=== PATIENT | male | born 1965 | race Caucasian/White ===

== ENCOUNTER 2023-03-15 03:45 | Inpatient (IN) | payer SELFPAY ==
[2023-03-15] VITALS (536 sets, daily range): BP systolic 111–134; BP diastolic 62–88; PULSE 60–90; TEMP 97.7–98.4; O2SAT 85–100
[~2023-03-15] VITALS: Ht 180.3 cm; Wt 144.5 kg
[2023-03-15 04:09] LABS: HEMATOCRIT 37.3 % (42.0-52.0); HEMOGLOBIN 12.3 g/dl (13.5-18.0); MEAN CELL VOLUME 87 fl (80.0-100.0); MEAN CORPUSCULAR HEMOGLOBIN 29 pg (27-31); MEAN CORPUSCULAR HGB CONC 33 g/dl (33.0-37.0); MEAN PLATELET VOLUME 11.2 fl (7.4-10.4); PLATELET COUNT 354 K/mm3 (130-400); RED BLOOD COUNT 4.28 M/mm3 (4.20-5.60); REDCELL DISTRIBUTION WIDTH-CV 13.6 % (11.5-14.5)
[2023-03-15 04:33] LABS: BAND 5 % (0-10); HYPOCHROMIA 1+; LYMPHOCYTE 12 % (20.0-51.0); METAMYELOCYTE 1 % (0-0); NEUTROPHILS 74 % (42.0-75.2); PLATELET ESTIMATE NORMAL (NORMAL)
[2023-03-15 04:58] LABS: C-REACTIVE PROTEIN 38.49 mg/dL (0.00-0.50); CREATININE, serum 1.25 mg/dL (0.72-1.25); MAGNESIUM 2.5 mg/dL (1.6-2.6); TROPONIN-I 0.018 ng/mL (0.00-0.033)
[2023-03-15 05:00] LABS: ALBUMIN 1.9 gm/dL (3.5-5.0); BILIRUBIN,TOTAL 1.4 mg/dL (0.2-1.2); POTASSIUM 3.6 mmol/L (3.5-4.5); TOTAL PROTEIN 8.1 gm/dL (6.2-8.1)
[2023-03-15] MEDS ORDERED: LYRICA 100MG C100 M1 PO (05:24)
[2023-03-15] MEDS ORDERED: NOVOLOG 100U100 U/M1 SQ (05:28)
[2023-03-15] MEDS ORDERED: Morphine 4 MG/ML VIAL IV ONE (05:30)
[2023-03-15] MEDS ORDERED: Potassium Chloride 100 ML IV SCH (06:00)
[2023-03-15] MEDS ORDERED: *Potassium Replacement Protocol MC SCH (06:00)
[2023-03-15] MEDS ORDERED: Acetaminophen 500 MG TAB PO PRN (06:00)
[2023-03-15] MEDS ORDERED: Ondansetron 4 MG/2 ML VIAL IV PRN ×2 (06:00→12:15)
[2023-03-15 06:04] LABS: CHOLESTEROL 122 mg/dL (0-199); HDL CHOLESTEROL < 5 mg/dL (40-60); LDL CHOLESTEROL 65 mg/dL; TRIGLYCERIDE 258 mg/dL (0-149)
[2023-03-15] MEDS ORDERED: Vancomycin 2 GM,Special Dose/Pharmacy Prepared 2 GM in NS 500 ML IV SCH (06:15)
[2023-03-15 07:16] LABS: BASO # 0.2 K/mm3 (0.0-0.2); BASO % 0.7 % (0.0-2.0); GRAN % 78.9 % (42.2-75.2); LYMPH # 2.4 K/mm3 (1.2-3.4); MONO # 1.6 K/mm3 (0.1-0.6); MONO % 7.4 % (1.7-9.3)
[2023-03-15] MEDS ORDERED: Dextrose (Glucose) 15 GM (4 x 3.75 GM) Chewable TABLET PACK PO PRN (08:45)
[2023-03-15] MEDS ORDERED: Dextrose 50% Water 25 GM/50 ML SYRINGE IV PRN (08:45)
[2023-03-15] MEDS ORDERED: Glucagon 1 MG VIAL IM PRN (08:45)
[2023-03-15] MEDS ORDERED: Pregabalin 50 MG CAP PO SCH (09:00)
[2023-03-15 09:46] LABS: INR 1.3 (0.8-3.0); PROTHROMBIN TIME 13.9 SECONDS (9.7-12.8)
--- NOTE | 2023-03-15 10:07 | NUR ---
PATIENT UP TO FLOOR AT APPROXIMATELY 0745. PATIENT ON ANTOINE BED. ASSESSMENT PERFORMED. IV TO RIGHT AC, INT FLUSHES WELL. INTAKE COMPLETE. MED RX COMPLETE. WAITING FOR ORDERS.
--- NOTE | 2023-03-15 10:09 | NUR ---
PATIENT OFF OF FLOOR FOR PROCEDURE.
[2023-03-15] MEDS ORDERED: Regadenoson 0.08 MG/ML 5 ML SYRINGE IV SCH (11:15)
[2023-03-15] MEDS ORDERED: Ondansetron 4 MG/2 ML VIAL ONE (11:56)
[2023-03-15] MEDS ORDERED: fentaNYL 50 MCG/ML 2 ML VIAL ONE (11:56)
[2023-03-15] MEDS ORDERED: Rocuronium 50 MG/5 ML Multi-Dose VIAL ONE (11:56)
[2023-03-15] MEDS ORDERED: Lidocaine PF 2% (20 MG/ML) 5 ML VIAL ONE (11:56)
[2023-03-15] MEDS ORDERED: Insulin Aspart (NovoLOG) SQ SCH (12:00)
[2023-03-15] MEDS ORDERED: HYDROmorphone 0.5 MG/0.5 ML SYRINGE IV PRN (12:15)
[2023-03-15] MEDS ORDERED: diphenhydrAMINE 50 MG/ML 1 ML VIAL IV PRN (12:15)
[2023-03-15] MEDS ORDERED: oxyCODONE 5 MG TAB PO PRN (12:15)
[2023-03-15] MEDS ORDERED: diphenhydrAMINE 25 MG CAP PO PRN (12:15)
[2023-03-15] MEDS ORDERED: Naloxone 0.4 MG/ML VIAL IV PRN (12:15)
[2023-03-15] MEDS ORDERED: D5 1/2 NS 1,000 ML IV SCH (12:15)
[2023-03-15] MEDS ORDERED: Docusate Sodium 100 MG CAP PO PRN (12:15)
[2023-03-15] MEDS ORDERED: Magnes Hydrox (MOM) 80 MG/ML 30 ML CUP PO PRN (12:15)
[2023-03-15] MEDS ORDERED: Mag/Al Hydrox/Simeth Susp 30 ML CUP PO PRN (12:15)
[2023-03-15] MEDS ORDERED: NS 1,000 ML IV SCH (15:30)
--- NOTE | 2023-03-15 15:35 | NUR ---
tube worker met with patient to complete care assessment. Patient lives in [place] with his daughter, Stephanie, P# [phone]. Patient does not have a PCP due to not having insurance. Preferred pharmacy is [facility] and he reports using [facility] to make his medications more affordable. Patient does not have a DPOA-HC. SW presented a blank DPOA-HC form for patient to review as patient was potentially interested in completing one while in the hospital. Patient reports he does not have any DME at this time but may need a walker after this surgery. Patient reports prior to hospitalization he was doing well with being independent with ADLS. Patient does not own a form of transportation but reports his daughter could transport him if it were after she gets off work at 3:30 pm. SW discussed patient participating with therapies while here and may need rehab prior to returning home. Patient was open to this but does not have insurance, so that was his main concern. SW will continue to follow for PT/OT recommendations. SW attempted to contact financial counselor to obtain financial assistance for patient. SW left a voicemail.
[2023-03-15] MEDS ORDERED: Vancomycin 1.5 GM,Special Dose/Pharmacy Prepared 1.5 GM in NS 250 ML IV SCH (17:00)
--- NOTE | 2023-03-15 19:00 | NUR ---
1425 PT ADMITTED TO [facility] 15 FROM PACU. PT STABLE UPON ARRIVAL, O2 SATS 98% ON 4L/NC, O2 TITRATED TO 2L. DRESSING TO L BKA SURGICAL SITE CDI, IMMOBILIZER IN PLACE. LIMB ELEVATED ON PILLOW, ICE PACK APPLIED. PT ALERT AND ORIENTED, USES CALL LIGHT FOR NEEDS. 1900 PT REMAINS STABLE THROUGHOUT SHIFT, VSS ON 2L O2 PER NC. PT ABLE TO EAT AND DRINK W/O NAUSEA. ONE DOSE OF OXYCODONE GIVEN AT 1639 FOR 5/10 PAIN TO SURGICAL SITE.
[2023-03-15 20:34] LABS: CALCIUM 7.7 mg/dL (8.4-10.2); CREATININE, serum 1.39 mg/dL (0.72-1.25); POTASSIUM 3.8 mmol/L (3.5-4.5)
[2023-03-15] MEDS ORDERED: Atorvastatin 40 MG TAB PO SCH (21:00)
[2023-03-15] MEDS ORDERED: Melatonin 3 MG TAB PO PRN (21:00)
[2023-03-15] MEDS ORDERED: Potassium Bicarbonate/Citrate 20 MEQ Effervescent TAB PO ONE (22:45)
[2023-03-16] VITALS (833 sets, daily range): BP systolic 105–135; BP diastolic 66–85; PULSE 74–89; TEMP 97.6–98.5; O2SAT 80–100
[2023-03-16 09:21] LABS: HEMOGLOBIN 11.4 g/dl (13.5-18.0); MEAN CELL VOLUME 86 fl (80.0-100.0); MEAN CORPUSCULAR HEMOGLOBIN 29 pg (27-31); MEAN CORPUSCULAR HGB CONC 33 g/dl (33.0-37.0); MEAN PLATELET VOLUME 11.2 fl (7.4-10.4); PLATELET COUNT 303 K/mm3 (130-400); RED BLOOD COUNT 3.98 M/mm3 (4.20-5.60); REDCELL DISTRIBUTION WIDTH-CV 14.4 % (11.5-14.5)
[2023-03-16 09:23] LABS: HEMATOCRIT 34.4 % (42.0-52.0)
[2023-03-16 09:35] LABS: ALBUMIN 1.4 gm/dL (3.5-5.0); BILIRUBIN,TOTAL 1.1 mg/dL (0.2-1.2); CALCIUM 7.5 mg/dL (8.4-10.2); CREATININE, serum 1.77 mg/dL (0.72-1.25); MAGNESIUM 2.4 mg/dL (1.6-2.6); POTASSIUM 3.8 mmol/L (3.5-4.5); TOTAL PROTEIN 6.5 gm/dL (6.2-8.1)
[2023-03-16 09:51] LABS: BAND 27 % (0-10); LYMPHOCYTE 10 % (20.0-51.0); METAMYELOCYTE 1 % (0-0); NEUTROPHILS 57 % (42.0-75.2); PLATELET ESTIMATE NORMAL (NORMAL)
--- NOTE | 2023-03-16 10:32 | NUR ---
PT glucose is elevated this am. Pt explains at home is sugars are close to 400 if not over often. PT also states he ate a cookie at 0645. Pt also complains of burning in his left leg. Lyrica and tylenol did help with the sensation. Pt refuses morning hygeine will offer again this afternoon. Pt has call light in hand and verbalizes understanding of its use. Plan of care on going.
[2023-03-16] MEDS ORDERED: Potassium Chloride 100 ML IV SCH (13:45)
--- NOTE | 2023-03-16 14:46 | NUR ---
Report given to HEYDI Gama. Pt moved to room 342. ALEJANDRA Simon met patient in room to obtain vital signs. Care relinquished at this time
--- NOTE | 2023-03-16 14:52 | NUR ---
RECIEVED REPORT FROM ICU NURSE AT 1423 PT ARRIVED TO THE UNIT AT 1445. VSS. POTASSIUM AND IV FLUIDS @75ML/HR. DRESSING WITH BRACE DCI. LBKA ELEVATED ON PILLOWS PT RESTING IN BED. DENIES FURTHER NEEDS AT THIS TIME. CALL LIGHT WITHIN REACH, EXIT ALARM ENGAGED.
--- NOTE | 2023-03-16 16:04 | NUR ---
Network Applications Specialist met with patient to discuss PT recommendation for post acute rehab. Patient is self pay at this time, however SW contacted Sharifa, Financial Counselor who has applied for Medicaid for patient. SW discussed [facility] vs [facility] Medicaid pending. Patient was agreeable to referrals being sent but also stated if he could just "get up and walk" he could go home. SW gave referral to [facility], then faxed referral to [facility] Acharya, [facility], [facility] Murillo, [facility], Magalie Gandhi [facility], [facility], and [facility].
--- NOTE | 2023-03-16 16:39 | NUR ---
PT BG THIS AFTERNNON WAS 476. HOSPITALIST NOTIFIED PER EMAR. 14U INSULIN GIVEN BEFORE SUPPER.
--- NOTE | 2023-03-16 19:08 | NUR ---
RECEIVED CHANGE OF SHIFT REPORT FROM DAY SHIFT RN.
--- NOTE | 2023-03-17 00:16 | NUR ---
ATTEMPT VENIPUNCTURE TO LUE PER PATIENT REQUEST TO MOVE IV SITE FROM RAC. VENIPUNCTURE UNSUCCESSFUL, PATIENT STATES HX OF DIFFICULT VENIPUNCTURES FOR IV SITES "THEY ROLL" REFERRING TO VEINS. IV SITE CONTINUES TO RAC WITH IV FLUIDS INFUSING WITH NO PROBLEMS.
--- NOTE | 2023-03-17 03:13 | NUR ---
OBSERVED PATIENT DIAPHORETIC, SPEAKS CLEARLY, DENIES ANY C/O CHEST PAIN/SOA. OXYGEN PLACED AT 2 LPM FOR LOW O2 SAT BET 80-84%. OXYGEN SAT IMPROVED WITH OXYGEN AT 2 LPM TO MID 90'S. FSBS CHECKED AT 352. PATIENT REPORTS THAT HE SWEATS ALOT NORMALLY. ATTEMPTED TO CONTACT ONCALL HOSP PROVIDER TO INFORMED OF CONTINUES ELEVATED FSBS READING AT THIS TIME, NO ANSWER.
--- NOTE | 2023-03-17 03:28 | NUR ---
Informed oncall provider of recent FSBS of 352, clarified if needing to treat with SSI, provider rec no treatment at this time. Informed of patient having to have oxygen d/t low oxygen sat placed with improved sats of up to mid 90's.
[2023-03-17 03:58] VITALS: BP 147/68; PULSE 85; TEMP 98
[2023-03-17 07:06] VITALS: BP 133/76; PULSE 76; TEMP 97.9
--- NOTE | 2023-03-17 07:23 | NUR ---
RECIEVED REPORT FROM [facility] FEDERAL APPELLATE CLERK HEYDI.
--- NOTE | 2023-03-17 07:27 | NUR ---
CHANGE OF SHIFT REPORT GIVEN TO DAY SHIFT RNMAGALY.
[2023-03-17 07:52] LABS: MEAN CELL VOLUME 87 fl (80.0-100.0); MEAN CORPUSCULAR HEMOGLOBIN 29 pg (27-31); MEAN CORPUSCULAR HGB CONC 33 g/dl (33.0-37.0); MEAN PLATELET VOLUME 11.1 fl (7.4-10.4); PLATELET COUNT 322 K/mm3 (130-400); RED BLOOD COUNT 3.81 M/mm3 (4.20-5.60); REDCELL DISTRIBUTION WIDTH-CV 14.7 % (11.5-14.5)
[2023-03-17] MEDS ORDERED: Insulin NPH/REG (NovoLIN 70/30) SQ SCH (08:00)
[2023-03-17 08:26] LABS: ALBUMIN 1.4 gm/dL (3.5-5.0); BILIRUBIN,TOTAL 0.8 mg/dL (0.2-1.2); CALCIUM 7.4 mg/dL (8.4-10.2); CREATININE, serum 2.1 mg/dL (0.72-1.25); MAGNESIUM 2.5 mg/dL (1.6-2.6); POTASSIUM 3.7 mmol/L (3.5-4.5); TOTAL PROTEIN 6.6 gm/dL (6.2-8.1)
[2023-03-17 08:28] LABS: HEMATOCRIT 33.1 % (42.0-52.0)
[2023-03-17 09:13] LABS: BAND 28 % (0-10); EOSINOPHIL 1 % (0-4); LYMPHOCYTE 17 % (20.0-51.0); NEUTROPHILS 52 % (42.0-75.2); PLATELET ESTIMATE NORMAL (NORMAL)
--- NOTE | 2023-03-17 09:23 | NUR ---
Initial visit; Patient very depressed and states that "His time has come." Launch Engineer listened and asked about what was going on with his health. He says everything is wrong and that his feet and legs won't let him walk and his body has just given up. Launch Engineer offered prayer that he respond to the health care given him here and to remember that God is in charge of whether he recover here or in Heaven. Patient seemed to agree that it's all out of his hands. Launch Engineer wished him well.
[2023-03-17] MEDS ORDERED: *Potassium Replacement Protocol MC SCH (10:15)
[2023-03-17] MEDS ORDERED: Potassium Bicarbonate/Citrate 20 MEQ Effervescent TAB PO SCH (10:15)
[2023-03-17 11:00] VITALS: BP 128/77; PULSE 88; TEMP 98.5
[2023-03-17 11:27] LABS: CALCIUM 7.6 mg/dL (8.4-10.2); CREATININE, serum 2.15 mg/dL (0.72-1.25); POTASSIUM 3.7 mmol/L (3.5-4.5)
[2023-03-17] MEDS ORDERED: LR 1,000 ML IV ONE (11:45)
[2023-03-17] MEDS ORDERED: Insulin Aspart (NovoLOG) SQ SCH (12:00)
--- NOTE | 2023-03-17 12:04 | NUR ---
Karen at [facility] declined referral as they cannot accept any Medicaid pending at this time.
--- NOTE | 2023-03-17 12:55 | NUR ---
SW faxed referral to [facility] for inpatient rehab services.
--- NOTE | 2023-03-17 13:32 | NUR ---
PT ALERT AND ORIENTED. PER HEAD CD REACTOR OPERATOR WAS C/O NUMBNESS OF LBKA STUMP. WHEN I ASKED HIM ABOUT IT HE SAID IT WAS MORE PHANTOM PAIN, HE CAN FEEL WHEN I TOUCH HIS LEFT THIGH. SHIFT ASSESSMENT COMPLETE. MEDICATED PER EMAR, BG STILL RUNNING HIGH INSULIN WAS ADJUSTED AND CONTINUES TO BE ON A CARB CONTROL DIET .PROVIDER AWARE INSULIN MODIFIED TO TREAT. NS FLUIDS D/C ALSO IV ABX. PT NOW HAS LR RUNNING. CALL LIGHT WITHIN REACH. EXIT ALARM SET.
[2023-03-17 15:39] LABS: CALCIUM 7.8 mg/dL (8.4-10.2); CREATININE, serum 1.96 mg/dL (0.72-1.25); POTASSIUM 3.8 mmol/L (3.5-4.5)
[2023-03-17 15:55] VITALS: BP 124/86; PULSE 98; TEMP 99.9
--- NOTE | 2023-03-17 17:01 | NUR ---
UPON ENTERING PT ROOM HE WAS VERY LETHARGIC AND COULD ONLY STAYT AWAKE TO ANSWER YES OR NO QUESTIONS. HIS BG IS NOW AT 211. HE HAS PREVIOUSLY BEEN RUNNING IN THE 300-400'S. MARCO NIETO WAS NOTIFIED, VERBALLY ORDERED TO HOLD THE SLIDING SCALE INSULIN AND GIVE THE NOVOLIN.
[2023-03-17 17:20] LABS: ARTERIAL BLD GAS O2 SATURATION 87.9 % (92-100); ARTERIAL BLD GAS TCO2 CT 27.2; ARTERIAL BLOOD GAS BASE EXCESS 1.8 (-2-2); ARTERIAL BLOOD GAS PCO2 39.2 mmHg (35-45); ARTERIAL BLOOD GAS PO2 50.5 mmHg (80-100); ARTERIAL BLOOD GAS pH 7.44 (7.35-7.45)
--- NOTE | 2023-03-17 17:30 | NUR ---
PRIMARY RN CONCERNED DUE TO PT BEING LETHARGIC. THIS RN ASSESSED PT. PT ANSWERS QUESTIONS BUT DOES KEEP EYES SHUT. VSS. PT WAS ON 2L NC, ABG SHOWS A LOW PO2. PT INCREASED TO 4L NC. PRIMARY RN SPOKE WITH AVERY NIETO, ORDERS RECEIVED FOR HEAD CT, XRAY, AND COVID SWAB. FAMILY AND PT UPDATED. PT SWABBED AND SENT TO LAB, PT IN DROPLET ISOLATION. PT TAKEN DOWN TO CT. AVERY NIETO UPDATED.
--- NOTE | 2023-03-17 18:08 | NUR ---
PT BACK FROM CT. LAB CALLED
[2023-03-17 18:45] LABS: HEMOGLOBIN 10.8 g/dl (13.5-18.0); MEAN CELL VOLUME 86 fl (80.0-100.0); MEAN CORPUSCULAR HEMOGLOBIN 29 pg (27-31); MEAN CORPUSCULAR HGB CONC 34 g/dl (33.0-37.0); MEAN PLATELET VOLUME 10.4 fl (7.4-10.4); PLATELET COUNT 341 K/mm3 (130-400); RED BLOOD COUNT 3.75 M/mm3 (4.20-5.60); REDCELL DISTRIBUTION WIDTH-CV 14.5 % (11.5-14.5)
[2023-03-17 18:48] LABS: HEMATOCRIT 32.1 % (42.0-52.0)
--- NOTE | 2023-03-17 19:00 | NUR ---
BEDSIDE REPORT COMPLETED. PT STILL CONFUSED. KEEPS EYES CLOSED. HOLLERS OUT PROFANITIES AT TIMES. VERY POOR DENTATION. O2 4L N/C. FAMILY HERE VISITING. STILL IN ISOLATION PENDING COVID RESULTS. PT REFUSED PM MEAL. CALL LIGHT IN REACH. BED ALARM SET.
[2023-03-17 19:01] LABS: CALCIUM 7.5 mg/dL (8.4-10.2); CREATININE, serum 1.83 mg/dL (0.72-1.25); POTASSIUM 3.8 mmol/L (3.5-4.5)
--- NOTE | 2023-03-17 19:15 | NUR ---
CALLED REGARDING PTS OUTPUT. PT HAD A MODERATE VOID AROUND LUNCH TIME BUT SPILLED URINAL, SO UNABLE TO BE SURE OF AMOUNT. WILL BLADDER SCAN PT AND PLACE NAVARRETE IF HE IS RETAINING.
--- NOTE | 2023-03-17 19:15 | NUR ---
BEATRIS John RN REPORTED TO THIS NURSE CRITICAL WBC WAS GIVEN TO DR CABRERA.
[2023-03-17 20:02] VITALS: BP 128/56; PULSE 72; TEMP 98.6
[2023-03-17 20:04] LABS: BAND 10 % (0-10); EOSINOPHIL 1 % (0-4); LYMPHOCYTE 20 % (20.0-51.0); METAMYELOCYTE 1 % (0-0); NEUTROPHILS 63 % (42.0-75.2); PLATELET ESTIMATE NORMAL (NORMAL)
[2023-03-17 21:37] LABS: COLLECTION METHOD CLEAN CATCH
[2023-03-17 21:56] LABS: URINE APPEARANCE Clear (CLEAR/HAZY); URINE BLOOD Negative (NEGATIVE); URINE COLOR Yellow (YELLOW); URINE GLUCOSE Negative (NEGATIVE); URINE KETONE Negative (NEGATIVE); URINE NITRATE Negative (NEGATIVE); URINE PROTEIN(semi-quant) TRACE (NEGATIVE)
[2023-03-17 22:20] LABS: AMORPHOUS CRYSTAL Present (NOT PRESENT); URINE RBC 0-2 /hpf (0-2)
[2023-03-17 22:21] LABS: MUCOUS Present (NOT PRESENT); URINE BACTERIA Occasional /hpf (NONE SEEN)
--- NOTE | 2023-03-17 22:30 | NUR ---
NAVARRETE INSERTED BY BISI Bernstein RN WITH IMMEDIATE RETURN OF DAJUAN YELLOW RETURN.
[2023-03-17 23:34] LABS: CALCIUM 7.6 mg/dL (8.4-10.2); CREATININE, serum 1.84 mg/dL (0.72-1.25)
[2023-03-17 23:45] LABS: CREATININE, serum 1.84 mg/dL (0.72-1.25); SODIUM 127 mmol/L (136-145)
[2023-03-18] VITALS (9 sets, daily range): BP systolic 110–154; BP diastolic 61–78; PULSE 60–96; TEMP 97.7–102.2
--- NOTE | 2023-03-18 02:30 | NUR ---
NOTIFIED EARNEST DEL CID REGARDING EARLIER LAB RESULTS. WILL CONTINUE TO MONITOR. ALSO REPORTED RT FOOT APPEARANCE-BLACKISH BROWN TISSUE UNDERNEATH HEEL. DARK SPOTS TO TOES. HEEL PROTECTOR PLACED. LT STUMP ELEVATED ON PILLOW. IMMOBILIZER IN PLACE. TURNED AND REPOSTIONED 3:1. PT USES HAO FOLEY.
[2023-03-18 08:26] LABS: ALBUMIN 1.3 gm/dL (3.5-5.0); BILIRUBIN,TOTAL 1.1 mg/dL (0.2-1.2); C-REACTIVE PROTEIN 12.53 mg/dL (0.00-0.50); CALCIUM 7.7 mg/dL (8.4-10.2); CREATININE, serum 1.5 mg/dL (0.72-1.25); POTASSIUM 3.8 mmol/L (3.5-4.5); TOTAL PROTEIN 6.7 gm/dL (6.2-8.1)
[2023-03-18 08:45] LABS: HEMOGLOBIN 10.5 g/dl (13.5-18.0); MEAN CELL VOLUME 88 fl (80.0-100.0); MEAN CORPUSCULAR HEMOGLOBIN 29 pg (27-31); MEAN CORPUSCULAR HGB CONC 32 g/dl (33.0-37.0); MEAN PLATELET VOLUME 10.9 fl (7.4-10.4); PLATELET COUNT 307 K/mm3 (130-400); RED BLOOD COUNT 3.69 M/mm3 (4.20-5.60); REDCELL DISTRIBUTION WIDTH-CV 14.7 % (11.5-14.5)
[2023-03-18 08:49] LABS: HEMATOCRIT 32.6 % (42.0-52.0)
--- NOTE | 2023-03-18 08:58 | NUR ---
PT ATE 90% OF BREAKFAST. WORKING WITH PT AT THIS TIME. NAVARRETE CATHETER TO DD PER ORDERS. BKA TO LEFT CDI. RIGHT FOOT WITH ULCER PERFECTO NO DRESSINGS CURRENTLY. INTERMITTANTLY CONFUSED. COHERENT AT THIS TIME.
[2023-03-18 09:24] LABS: BAND 6 % (0-10); EOSINOPHIL 1 % (0-4); LYMPHOCYTE 16 % (20.0-51.0); METAMYELOCYTE 1 % (0-0); NEUTROPHILS 68 % (42.0-75.2); PLATELET ESTIMATE NORMAL (NORMAL)
--- NOTE | 2023-03-18 20:00 | NUR ---
GERIATRIC PHYSICAL THERAPIST CALLED THIS NURSE RELATED ORAL TEMP WAS 102. TEMP RECHECKED. 101.0 ORALLY NOTIFIED EARNEST VANCE. GIVE ES TYLENOL.
[2023-03-19 03:24] VITALS: BP 123/71; PULSE 67; TEMP 97.6
[2023-03-19 07:18] LABS: MEAN CELL VOLUME 89 fl (80.0-100.0); MEAN CORPUSCULAR HEMOGLOBIN 28 pg (27-31); MEAN CORPUSCULAR HGB CONC 31 g/dl (33.0-37.0); MEAN PLATELET VOLUME 10.2 fl (7.4-10.4); PLATELET COUNT 329 K/mm3 (130-400); RED BLOOD COUNT 3.94 M/mm3 (4.20-5.60); REDCELL DISTRIBUTION WIDTH-CV 14.7 % (11.5-14.5)
[2023-03-19 07:22] VITALS: BP 146/77; PULSE 82; TEMP 97.9
[2023-03-19 07:22] LABS: HEMATOCRIT 35.2 % (42.0-52.0)
[2023-03-19 07:44] LABS: ALBUMIN 1.4 gm/dL (3.5-5.0); BILIRUBIN,TOTAL 0.8 mg/dL (0.2-1.2); CREATININE, serum 1.21 mg/dL (0.72-1.25); MAGNESIUM 2.7 mg/dL (1.6-2.6); TOTAL PROTEIN 7.1 gm/dL (6.2-8.1)
[2023-03-19 07:55] LABS: BAND 7 % (0-10); LYMPHOCYTE 18 % (20.0-51.0); NEUTROPHILS 74 % (42.0-75.2); PLATELET ESTIMATE NORMAL (NORMAL)
[2023-03-19 07:56] LABS: HYPOCHROMIA 1+
[2023-03-19 08:42] LABS: COLLECTION METHOD CLEAN CATCH
[2023-03-19 09:07] LABS: PH 5.5 (5.0-8.5); SQUAMOUS EPITHELIAL 0-2 /hpf (0-10); URINE APPEARANCE Clear (CLEAR/HAZY); URINE BLOOD 2+ (NEGATIVE); URINE COLOR Yellow (YELLOW); URINE GLUCOSE Negative (NEGATIVE); URINE KETONE Negative (NEGATIVE); URINE NITRATE Negative (NEGATIVE); URINE PROTEIN(semi-quant) Negative (NEGATIVE); URINE UROBILINOGEN 0.2 E.U/dL (0.2-1.0)
--- NOTE | 2023-03-19 10:15 | NUR ---
PT HAD LG INCONTINENT BOWEL MOVEMENT THIS AM AFTER BREAKFAST. BED BATH AND CHANGE COMPLETE. PT IS A/O X4,PAIN CONTROLLED WITH PO MEDS. VSS, EATING AND DRINKING WITH NO NAUSEA OR VOMITING REPORTED.
[2023-03-19 11:03] VITALS: BP 139/72; PULSE 78; TEMP 98.1
--- NOTE | 2023-03-19 15:48 | NUR ---
SW met with patient, family was present and permitted to stay in room by patient during intake process. Patient shared that he currently does not have PCP / SW provided him local listings. Patient informed SW that he would like to use [facility] as pharmacy of choice. SW sent SW food production supervisor notification that [facility] needed for patient and support with getting insurance and disability information. Patient currently reports no DME's and up until this hospital visit has been independent with ADL's, feels that he may need additional support. Patient reports that he is currently residing with his daughter (Stephanie Harper [phone]) in [place]; patient would also like to complete DPOA and list his daughter as his physician representative. SW provided some general information sheet on DPOA for daughter to review, and would revisit with family on completing the forms. Patient was also provided community resource packet. This SW will notify SW team to revisit with patient and daughter on DPOA form Monday.
[2023-03-19 16:09] VITALS: BP 132/70; PULSE 73; TEMP 98
[2023-03-19] MEDS ORDERED: Insulin NPH/REG (NovoLIN 70/30) SQ SCH (17:00)
[2023-03-19 20:00] VITALS: BP 156/83; PULSE 84; TEMP 98.2
--- NOTE | 2023-03-19 20:45 | NUR ---
PT RESTING IN BED. KEEPS EYES CLOSED. MAKES INAPPROPRIATE REMARKS AT TIMES. PT C/O LT STUMP PAIN. IMMOBILIZER IN PLACE. CALL LIGHT IN REACH. BED ALARM SET. 02 RA- 95%.
[2023-03-19 23:00] VITALS: BP 133/75; PULSE 91; TEMP 98.5
--- NOTE | 2023-03-20 00:21 | NUR ---
PT ASKED FOR BEDPAN. PT ASSISTED WITH TURNS. A&O. HAD MED LOOSE BROWN STOOL. BUTTOCKS AND SCOTUM SL RED. SKIN PRODUCTS UTILIZED. TURNED AND REPOSTIONED. PILLOW UNDER LT STUMP. CALL IGHT IN REACH. BED ALARM SET.
[2023-03-20 03:14] VITALS: BP 118/71; PULSE 83; TEMP 98.4
[2023-03-20 07:38] VITALS: BP 141/78; PULSE 93; TEMP 98.1
[2023-03-20] MEDS ORDERED: Insulin NPH/REG (NovoLIN 70/30) SQ SCH (08:00)
--- NOTE | 2023-03-20 09:02 | NUR ---
Control Manager collaborated with Treatment Team during rounding to assess Patietn for discharge. Patient was referred to LTC facilities last week. SW contacted [facility] who financially declines Patient at this time. Patient is anticipated to discharge to LTC when placment is established.
--- NOTE | 2023-03-20 09:33 | NUR ---
PATIENT REFUSED LAB DRAW THIS MORNING. THIS NURSE HAD A TALK WITH PATIENT TO DISCUSS THE IMPORTANCE OF LAB DRAWS. PATIENT CONTINUES TO REFUSE. LET GERSON LEVI KNOW.
--- NOTE | 2023-03-20 09:41 | NUR ---
PATIENT ALERT AND ORIENTED X4. VSS. PATIENT HERE FOR LEFT FOOT ULCER, S/P LEFT BKA. DRESSING TO LLE WITH IMMOBILIZER ON. NAVARRETE TO DD WITH YELLOW OUTPUT. IV TO RIGHT AC INT FLUSHES WELL. PATIENT ON RA. PATIENT REPORTS INCREASED PAIN, RAITING 11/17, REQUESTS PAIN MEDICATION. PATIENT REFUSED MORNING LAB DRAW. PATIENT ON FLUID RESTRICTION AND NO FREE WATER. PATIENT EDUCATED ON REASONING BEHIND RESTRICTION AND NO FREE WATER. PATIENT BEGAN TO CURSE AT THIS NURSE. THIS NURSE ENSURED BED ALARM ACTIVATED AND CALL LIGHT WITHIN REACH.
[2023-03-20 11:48] VITALS: BP 158/81; PULSE 88; TEMP 99
[2023-03-20] MEDS ORDERED: PREGABALIN PO SCH (14:00)
[2023-03-20 15:00] LABS: HEMATOCRIT 38.1 % (42.0-52.0); HEMOGLOBIN 12.3 g/dl (13.5-18.0); MEAN CELL VOLUME 89 fl (80.0-100.0); MEAN CORPUSCULAR HEMOGLOBIN 29 pg (27-31); MEAN CORPUSCULAR HGB CONC 32 g/dl (33.0-37.0); MEAN PLATELET VOLUME 10.7 fl (7.4-10.4); RED BLOOD COUNT 4.28 M/mm3 (4.20-5.60); REDCELL DISTRIBUTION WIDTH-CV 15.1 % (11.5-14.5)
--- NOTE | 2023-03-20 15:19 | NUR ---
Medical Biller contacted patient's daughter to discuss discharge planning. SW advised multiple referrals were sent for Medicaid pending placement. Daughter is in agreement as she stated patient cannot return home at this time. Daughter is working on having a ramp built into the home. DERECK advised placement would likely be out of town and she verbalized understanding. Kareen at [facility] advised they can clinically accept, however they need approval from their local physician as patient does not have a PCP.
[2023-03-20 15:34] LABS: ANISOCYTOSIS 1+; BAND 11 % (0-10); EOSINOPHIL 1 % (0-4); LYMPHOCYTE 18 % (20.0-51.0); METAMYELOCYTE 1 % (0-0); NEUTROPHILS 66 % (42.0-75.2)
[2023-03-20 15:35] LABS: POLYCHROMASIA 1+
[2023-03-20 15:36] LABS: PLATELET ESTIMATE NORMAL (NORMAL)
[2023-03-20 15:37] VITALS: BP 149/82; PULSE 89; TEMP 98.4
[2023-03-20 15:37] LABS: PLATELET COUNT 279 K/mm3 (130-400)
--- NOTE | 2023-03-20 15:58 | NUR ---
Fleet Coordinator met with Patient to brief [facility] clinical acceptence. Patient states "find me something closer" when asked if Patient would consider placment if no other options were available patient defers SW to his daughter. SW attempted to contact Daughter and left a voicemail requesting callback.
--- NOTE | 2023-03-20 16:02 | NUR ---
Waterworks Employee was contacted by Delroy with [facility] who reports reciept of referral. Delroy requests copy of CHARLEE william, SW requested this from R1.
--- NOTE | 2023-03-20 16:07 | NUR ---
Milanese Knitting Machine Operator sent CHARLEE william to [facility] and [facility].
--- NOTE | 2023-03-20 16:11 | NUR ---
[employer] attempted to contact [facility] and [facility] with no success.
--- NOTE | 2023-03-20 16:25 | NUR ---
Quality Officer recieved a call from Patient's daughter who is supportive of [facility] placment if no other facilities accept. SW briefed update from [facility] and their continued review.
--- NOTE | 2023-03-20 17:44 | NUR ---
DR CABRERA NOTIFIED OF LAB UNABLE TO OBTAIN BLOOD DRAW FROM PATIENT. ORDERS ARE FOLLOWS: ATTEMPT TO DRAW LAB ONCE MORE, IF NOT WILL TRY AGAIN ON 12/12 IN AM. LAB CALLED TO REQUEST ADDITIONAL LAB DRAW, THIS NURSE WAS TOLD THAT MARKETING SYSTEMS MANAGER CAN TRY AND TECH WILL BE UP AROUND 2029. NO FURTHER ORDERS.
[2023-03-20 19:22] VITALS: BP 167/80; PULSE 91; TEMP 99
--- NOTE | 2023-03-20 20:15 | NUR ---
PT A&O LAYING IN BED. VSS. DENYING N/V. STATES PAIN IN BLE IS 11/17, SEE MAR. DRESSING TO LLE IS CDI & IMMOBILZER IN PLACE. RIGHT AC INT PATENT. NAVARRETE TO DD WITH YELLOW OUTPUT. PT UPSET ABOUT WATER RESTRICTION, ATTEMPTED PT EDUCATION BUT NO INTEREST. CALL LIGHT IN REACH & FALL PRECAUTIONS IN PLACE.
[2023-03-20 23:29] VITALS: BP 166/84; PULSE 87; TEMP 99.6
[2023-03-21] VITALS (12 sets, daily range): BP systolic 133–177; BP diastolic 78–90; PULSE 67–99; TEMP 97.4–100.4
--- NOTE | 2023-03-21 06:22 | NUR ---
PT RESTING IN BED WITH EVEN & UNLABORED RESP. NO C/O PAIN THIS AM. CALL LIGHT IN REACH
[2023-03-21] MEDS ORDERED: Carvedilol 3.125 MG TAB PO SCH (08:00)
[2023-03-21 08:26] LABS: HEMOGLOBIN 11.6 g/dl (13.5-18.0); MEAN CELL VOLUME 90 fl (80.0-100.0); MEAN CORPUSCULAR HEMOGLOBIN 29 pg (27-31); MEAN CORPUSCULAR HGB CONC 32 g/dl (33.0-37.0); MEAN PLATELET VOLUME 9.9 fl (7.4-10.4); PLATELET COUNT 326 K/mm3 (130-400); RED BLOOD COUNT 4.07 M/mm3 (4.20-5.60); REDCELL DISTRIBUTION WIDTH-CV 14.7 % (11.5-14.5)
[2023-03-21 08:28] LABS: HEMATOCRIT 36.5 % (42.0-52.0)
--- NOTE | 2023-03-21 08:42 | NUR ---
Lay Out Former collaborated with Treatment Team to assess Patient for discharge readiness. Patient is assessed by physician to need coninued medical treatment and reports soonest anticipated discharge date is tomorrow. Patient is clinically accepted by [facility] for LTC pending following medical provider acceptence. [facility] continues to review.
[2023-03-21 08:43] LABS: CALCIUM 8.5 mg/dL (8.4-10.2); CREATININE, serum 1.09 mg/dL (0.72-1.25); POTASSIUM 4.8 mmol/L (3.5-4.5)
[2023-03-21] MEDS ORDERED: Lisinopril 5 MG TAB PO SCH (09:00)
--- NOTE | 2023-03-21 09:19 | NUR ---
PATIENT ALERT AND ORIENTED X4. VSS. PATIENT HERE FOR LEFT FOOT ULCER, S/P LEFT BKA. PATIENT REPORTS PAIN 8/10, REQUESTS PAIN MEDICATION. IV TO RIGHT AC, INT. NAVARRETE TO DD WITH YELLOW OUTPUT. DRESSING INTACT ON LLE, IMMOBILIZER ON. PATIENT AWARE OF 1500ML FLUID RESTRICTION. NO FURTHER NEEDS. CALL LIGHT IN REACH, BED ALARM ON.
--- NOTE | 2023-03-21 10:12 | NUR ---
Agricultural Research Engineer was contacted by Delroy with [facility] who declines Patient for services. SW attempted to contact [facility] and left a voicemail for Dinese requesting callback.
--- NOTE | 2023-03-21 10:24 | NUR ---
Hand Mexican Food Maker was contacted by Kareen with [facility] who verrifies that [facility] intends to accept Patient for admission pensing acceptence from their primcary care office provider. SW briefed Patient is anticipated to discharge no sooner than tomorrow.
[2023-03-21 11:04] LABS: BAND 7 % (0-10); EOSINOPHIL 1 % (0-4); LYMPHOCYTE 20 % (20.0-51.0); METAMYELOCYTE 1 % (0-0); NEUTROPHILS 67 % (42.0-75.2); PLATELET ESTIMATE NORMAL (NORMAL)
--- NOTE | 2023-03-21 21:15 | NUR ---
PT A&O X4 LAYING IN BED. TEMP WAS 100.4, GIVEN PRN TYLENOL & NOW 99.7. DRESSING TO LLE IS CDI. NAVARRETE TO DD WITH YELLOW OUTPUT. CALL LIGHT IN REACH & FALL PRECAUTIONS IN PLACE. DENYING FURTHER NEEDS.
[2023-03-22] VITALS (12 sets, daily range): BP systolic 123–161; BP diastolic 62–80; PULSE 62–82; TEMP 97.4–98.2
[2023-03-22 06:48] LABS: HEMOGLOBIN 10.6 g/dl (13.5-18.0); MEAN CELL VOLUME 91 fl (80.0-100.0); MEAN CORPUSCULAR HEMOGLOBIN 28 pg (27-31); MEAN CORPUSCULAR HGB CONC 31 g/dl (33.0-37.0); MEAN PLATELET VOLUME 9.5 fl (7.4-10.4); PLATELET COUNT 325 K/mm3 (130-400); RED BLOOD COUNT 3.78 M/mm3 (4.20-5.60); REDCELL DISTRIBUTION WIDTH-CV 14.7 % (11.5-14.5)
[2023-03-22 06:49] LABS: HEMATOCRIT 34.3 % (42.0-52.0)
[2023-03-22 07:03] LABS: ALBUMIN 1.5 gm/dL (3.5-5.0); BILIRUBIN,TOTAL 0.6 mg/dL (0.2-1.2); CALCIUM 8.2 mg/dL (8.4-10.2); CREATININE, serum 1.04 mg/dL (0.72-1.25); POTASSIUM 4.8 mmol/L (3.5-4.5)
[2023-03-22 07:11] LABS: BAND 2 % (0-10); EOSINOPHIL 1 % (0-4); HYPOCHROMIA 2+; LYMPHOCYTE 26 % (20.0-51.0); NEUTROPHILS 66 % (42.0-75.2); PLATELET ESTIMATE NORMAL (NORMAL)
[2023-03-22 07:12] LABS: SCHISTOCYTES 1+; STOMATOCYTE 1+
[2023-03-22] MEDS ORDERED: Insulin NPH/REG (NovoLIN 70/30) SQ SCH (08:00)
--- NOTE | 2023-03-22 08:00 | NUR ---
PATIENT IS ORIENTED BUT DROWSY THIS AM. PATIENT IS VERY GRUMPY AND OFTEN SHORT WITH STAFF. PATIENT C/O PAIN IN LLE AND REQUESTING SOMETHING FOR PAIN, GIVEN WITH AM MEDS. LEFT BKA DSG IS CD&I WITH BULKY DSG & IMOBILIZER INPLACE. VERY LIMITED MOBILITY REQUIRING 3 MAX ASSIST OR SIT TO STAND LIFT. NO C/O N/V. AM BS WAS 141, NO SSI REQUIRED. BREAKFAST TRAY AT BEDSIDE. PATIENT ASSISTED TO SET UP FOR BREAKFAST. ADA DIET. 1,500CC FR WHICH PATIENT GET VERY UPSET WITH RESTRICTION. NAVARRETE TO DD WITH MOD AMOUNTS OF YELLOW URINE NOTED. RIGHT AC IV TO INT. HEAD TO TOE ASSESSMENT COMPLETE. PLAN IS TO DISCHARGE TO [facility] TODAY. NO OTHER NEEDS AT THIS TIME. CALL LIGHT IN REACH. BED ALARM ON.
--- NOTE | 2023-03-22 09:00 | NUR ---
HOSPITALIST TEAM ROUNDING, DISCHARGE TO SNF ON HOLD DUE TO TEMP OF 100.4 LAST NIGHT. PATIENT AFEBRILE THIS AM. SEE ORDERS.
--- NOTE | 2023-03-22 13:00 | NUR ---
PATIENT WANTING MORE PAIN MEDS, GIVEN PER MAR. OBTAINED RESP. PANEL SWAB AND SENT TO LAB. PATIENT UPSET ABOUT FLUID RESTRICTION AND IS NOT INTERESTED IN EDUCATION. PATIENT RESTING UP IN BED WITH CALL LIGHT.
--- NOTE | 2023-03-22 21:30 | NUR ---
PT A&O X4 LAYING IN BED. VSS. STATES PAIN IS 8/10 IN BLE, GIVEN PRN PER PT REQUEST. DENYING N/V. DRESSING TO LLE IS CDI & IMMOBILIZER IN PLACE. NAVARRETE TO DD WITH YELLOW OUTPUT. INT TO RIGHT AC PATENT. PT REQUESTING MORE FLUIDS & HAS NO INTEREST IN EDUCATION ON FLUID RESTRICTION. CALL LIGHT IN REACH.
[2023-03-23 00:01] VITALS: BP 164/80; PULSE 84; TEMP 99.4
[2023-03-23 00:36] VITALS: BP_SYST 164
[2023-03-23 04:09] VITALS: BP 146/75; PULSE 82; TEMP 98.5
[2023-03-23 04:15] VITALS: BP_SYST 146
[2023-03-23 08:07] VITALS: BP 157/89; PULSE 80; TEMP 98
--- NOTE | 2023-03-23 08:17 | NUR ---
(Late Entry) On 03/22/23 Awning Installer attended clinical rounds with the team and patient was not ready for discharge as he had a fever the night before. SW contacted Kareen at [facility] and patient's daughter, Stephanie to provide update.
[2023-03-23 08:27] LABS: BASO % 0.3 % (0.0-2.0); EOS # 0.2 K/mm3 (0.0-0.7); EOS % 1.2 % (0.0-4.0); GRAN # 9.5 K/mm3 (1.4-6.5); GRAN % 70.9 % (42.2-75.2); HEMOGLOBIN 10.5 g/dl (13.5-18.0); LYMPH # 2.7 K/mm3 (1.2-3.4); LYMPH % 20.3 % (20.0-51.0); MEAN CELL VOLUME 90 fl (80.0-100.0); MEAN CORPUSCULAR HEMOGLOBIN 28 pg (27-31); MEAN CORPUSCULAR HGB CONC 32 g/dl (33.0-37.0); MEAN PLATELET VOLUME 9.4 fl (7.4-10.4); MONO # 0.9 K/mm3 (0.1-0.6); MONO % 6.4 % (1.7-9.3); PLATELET COUNT 294 K/mm3 (130-400); RED BLOOD COUNT 3.72 M/mm3 (4.20-5.60); REDCELL DISTRIBUTION WIDTH-CV 14.7 % (11.5-14.5)
[2023-03-23 08:33] LABS: HEMATOCRIT 33.3 % (42.0-52.0)
[2023-03-23 08:44] LABS: CALCIUM 8.4 mg/dL (8.4-10.2); CREATININE, serum 0.98 mg/dL (0.72-1.25); POTASSIUM 4.8 mmol/L (3.5-4.5)
[2023-03-23 09:40] VITALS: BP_SYST 157
--- NOTE | 2023-03-23 09:41 | NUR ---
Hand Alterations Tailor collaorated with Treatment Team to assess Patient for discharge readiness. Patient is ready for discharge. SW contacted [facility] who establishes transportation ~1100.
--- NOTE | 2023-03-23 09:48 | NUR ---
PT RESTING ON SIDE OF BED WITH PAIN 8/10 IN BKA. PAIN MEDICAITON PROVIDED PER EMAR. DRESSING CLEAN, DRY, AND INTACT. +2 PITTING EDEMA IN RLE. FLUID RESTICTION LIFTED. PLAN TO DISCHARGE TODAY AT 1100. WILL CONTINUE TO MONITOR.
[2023-03-23] MEDS ORDERED: LIPITOR 40MG TA40 MG PO (09:53)
[2023-03-23] MEDS ORDERED: ZESTRIL 5MG5 MG PO (09:54)
[2023-03-23] MEDS ORDERED: COREG 3.123.125 MG/T PO (09:54)
[2023-03-23] MEDS ORDERED: ASPI325T6 PO (09:55)
[2023-03-23] MEDS ORDERED: ROXICODONE 55 MG/TAB PO (09:56)
[2023-03-23] MEDS ORDERED: TYLENOL 500MG500 MG PO (09:59)
[2023-03-23] MEDS ORDERED: HUMULIN 70/30 PE3 ML SQ ×2 (10:06)
[2023-03-23] MEDS ORDERED: NOVOLOG FLEX100 U/ML SQ (10:07)
--- NOTE | 2023-03-23 10:27 | NUR ---
Railcar Carpenter faxed discharge orders to [facility]
--- NOTE | 2023-03-23 11:20 | NUR ---
BED BATH PROVIDED TO PT, BELONGINGS GATHERED, [facility] STAFF PROVIDED WITH PAPERWORK. REPORT CALLED TO DAVID AT [facility]. NO FUTHER QUESTIONS AT THIS TIME.
[2023-03-31] MEDS ORDERED: ASPIRIN 81M81 MG/TA2 PO (12:52)
[2023-03-31] MEDS ORDERED: LEVEMIR100 U/ML SQ (12:54)
[2023-03-31] MEDS ORDERED: MILK OF MA400 MG/52 (12:56)
[2023-03-31] MEDS ORDERED: DULCOLAX STOOL100 MG PO (12:57)
== END 2023-03-23 11:20 | DRG 853 ==
LOC: COL.ER 03:45 → SURG 05:46 → IMCU 14:52 → SURG 03-16 14:44
PROVIDERS: Emergency Medicine; Hospitalist; Nurse Practitioner Family; Orthopaedic Surgery Sports Medicine; Physician Assistant; ADMIT Internal Medicine
PROC: 0Y6J0Z1 Detachment at Left Lower Leg, High, Open Approach (ICD-10-PCS; principal; 2023-03-15 12:00)
DX: A41.9 Sepsis, unspecified organism (principal); A48.0 Gas gangrene; I50.21 Acute systolic (congestive) heart failure; E11.52 Type 2 diabetes mellitus with diabetic peripheral angiopathy with gangrene; E87.1 Hypo-osmolality and hyponatremia; I13.0 Hypertensive heart and chronic kidney disease with heart failure and stage 1 through stage 4 chronic kidney disease, or unspecified chronic kidney disease; R65.20 Severe sepsis without septic shock; E11.621 Type 2 diabetes mellitus with foot ulcer; Z79.4 Long term (current) use of insulin; K21.9 Gastro-esophageal reflux disease without esophagitis; E87.6 Hypokalemia; N18.9 Chronic kidney disease, unspecified; E11.40 Type 2 diabetes mellitus with diabetic neuropathy, unspecified; Z59.6 Low income; E78.5 Hyperlipidemia, unspecified; G47.00 Insomnia, unspecified; Z87.891 Personal history of nicotine dependence; F10.90 Alcohol use, unspecified, uncomplicated; R53.81 Other malaise; E66.9 Obesity, unspecified; Z68.30 Body mass index [BMI] 30.0-30.9, adult
CPT/HCPCS: A9284; A9500-JZ; J1170; J1650; J1815; J2270; J2405; J2543; J2704; J2785; J3010; J3370; J3480; J7030; J7040; J7050; J7120; L1830; Q3014